=== PATIENT | male | born 1950 | race Caucasian/White ===

== ENCOUNTER 2017-04-24 12:08 | Observation (INO) ==
[2017-04-24 12:51] LABS: Hematocrit 46.6 % (37.5-50.1); Hemoglobin 16.8 g/dL (12.9-16.9); Mean Corpuscular HGB Conc 36.1 g/dL (31.6-35.5); Mean Corpuscular Hemoglobin 31.9 pg (28.0-33.3); Mean Corpuscular Volume 88.6 fL (83.0-100.0); Mean Platelet Volume 9.6 fL (9.4-12.4); Platelet Count 157 K/mcL (140-400); Red Blood Count 5.26 M/mcL (4.19-5.50); Red Cell Distribution Width 13.2 % (11.5-14.5)
[2017-04-24 13:06] LABS: BUN/Creatinine Ratio 6 (6-26); Blood Urea Nitrogen 4 mg/dL (8-26); Calcium 9.5 mg/dL (8.6-10.8); Carbon Dioxide 25 mEq/L (19-29); Chloride 91 mEq/L (98-109); Glucose 103 mg/dL (70-99); Osmolality,Calculated 263 (280-300); Potassium 3.5 mEq/L (3.5-4.5); Sodium 128 mEq/L (136-145); eGFR For African Americans > 60 (> 60); eGFR For Non-African Americans > 60 (> 60)
[2017-04-24 13:15] LABS: Lymphocytes # 0.8 K/mcL (0.6-4.6); Monocytes # 0.9 K/mcL (0.0-1.3); Platelet Estimate Normal (Normal); Reactive Lymphocytes Present (Not Present)
--- NOTE | 2017-04-24 13:54 | Emergency Department Note ---
Disposition Clinical Impression: Acute exacerbation of chronic obstructive airways disease Disposition: Admitted As Inpatient Condition: Fair Referrals: Nikunj Samson DO [Primary Care Provider] - Forms: ED Satisfaction Letter Time of Disposition: 14:19 SOB HPI - General Chief Complaint: ED Shortness of Breath/Dyspnea Stated Complaint: CELESTINE Time Seen by Provider: 04/24/17 13:34 Source: patient Mode of arrival: ambulatory Limitations: no limitations Nursing Notes Reviewed: Yes Vital Signs Reviewed: Yes - History of Present Illness 67-year-old male who comes in with exertional dyspnea as for the last 4 days. Pt Subjective Complaint: shortness of breath Onset (ago): day(s) (4) Context: recent illness Severity: moderate Consistency/Duration: constant Improves with: oxygen Worsens with: exertion Known history of: COPD Associated symptoms: Reports: cough, wheezing. Denies: chest pain Treatment prior to arrival: none Cough present: Yes Cough Description: Involuntary Cough Frequency: Intermittent Sputum Amount: None - Related Data Home Medications Medication Instructions Recorded Confirmed No Known Home Drugs 04/24/17 04/24/17 Allergies Allergy/AdvReac Type Severity Reaction Status Date / Time No Known Allergies Allergy Verified 04/24/17 12:29 All systems ED: reviewed and negative except as stated. Constitutional: Denies: fever, chills, weakness, weight change Eyes: Denies: eye pain, eye discharge, vision change ENT ED: Denies: ear pain, throat pain, dental pain, hearing loss, epistaxis, congestion, dysphagia Cardiovascular: Denies: chest pain, palpitations, dyspnea on exertion, edema, syncope Respiratory: Reports: cough, wheezes. Denies: dyspnea, hemoptysis, stridor Gastrointestinal: Denies: abdominal pain, nausea, vomiting, diarrhea, constipation, hematemesis, melena, hematochezia Genitourinary: Denies: urgency, dysuria, frequency, hematuria Musculoskeletal: Denies: back pain, neck pain, arthralgia, myalgia Integumentary: Denies: rash, abrasion, lesions Neurological: Denies: headache, weakness, numbness, paresthesias, confusion, abnormal gait, vertigo Psychiatric: Denies: anxiety, depression, suicidal thoughts, homicidal thoughts , auditory hallucinations, visual hallucinations Endocrine: Denies: fatigue Hematological/Lymphatic: Denies: easy bleeding, easy bruising Allergic/Immunologic: Denies: facial swelling, urticaria Past Medical History - Past Medical History Medical history: Reports: no medical history Psychiatric history: Reports: no psych history - Social History Smoking Status: Current every day smoker Smokeless Tobacco Status: Yes Alcohol use: Reports: occasionally Drug use: Reports: none Physical Exam - General Limitations: no limitations General appearance: alert - Head Head exam: atraumatic, normocephalic, normal inspection - Eye Eye exam: Present: normal appearance, PERRL, EOMI - ENT ENT exam: normal exam, normal oropharynx, mucous membranes moist - Neck Neck exam: Present: normal inspection, full ROM, trachea midline - Chest Chest inspection: Present: normal inspection, symmetric chest wall rise - Respiratory Respiratory exam: Present: wheezes - Cardiovascular Cardiovascular exam: Present: regular rate, normal rhythm, normal heart sounds - Abdominal Exam Abdominal exam: Present: soft, Non-Tender. Absent: tenderness, distention, guarding, rebound, rigidity - Extremities Exam Extremities exam: Present: normal inspection, full ROM. Absent: tenderness, pedal edema - Expanded Lower Extremity Exam Neurovascular/Tendon exam: Absent: motor deficit, sensory deficit, tendon deficit Gait: observed and normal - Back Exam Back exam: Present: normal inspection, full ROM. Absent: tenderness - Neurological Exam Neurological exam: Present: alert, oriented X3 - Psychiatric Psychiatric exam: Present: normal affect, normal mood - Skin Skin exam: Present: warm, dry, intact, normal color Course - Reevaluation(s) Reevaluation #1: 67-year-old with severe COPD comes in with increasing shortness of breath. Patient will be admitted for an exacerbation. Time: 14:47 - Consultations Consultation #1: Discussed with , admit. Time: 14:47 Vital Signs Temperature 97.6 F 04/24/17 12:09 Pulse Rate 129 04/24/17 12:09 Respiratory Rate 18 04/24/17 12:09 Blood Pressure 176/99 04/24/17 12:09 O2 Sat by Pulse Oximetry 97 04/24/17 12:09 Temperature 97.6 F 04/24/17 12:09 Pulse Rate 99 04/24/17 14:33 Respiratory Rate 13 04/24/17 14:33 Blood Pressure 151/97 04/24/17 14:33 O2 Sat by Pulse Oximetry 92 04/24/17 14:33 Oxygen Delivery Oxygen Delivery Room Air Shortness of Breath/Dyspnea - Lab Data Lab results reviewed: Yes I reviewed the patient's lab results. Result diagrams: 04/24/17 12:45 04/24/17 12:45 Lab Results 04/24/17 04/24/17 04/24/17 Range/Units 12:45 12:45 12:45 WBC 7.7 (4.3-11.1) K/mcL RBC 5.26 (4.19-5.50) M/mcL Hgb 16.8 (12.9-16.9) g/dL Hct 46.6 (37.5-50.1) % MCV 88.6 (83.0-100.0) fL MCH 31.9 (28.0-33.3) pg MCHC 36.1 H (31.6-35.5) g/dL RDW 13.2 (11.5-14.5) % Plt Count 157 (140-400) K/mcL MPV 9.6 (9.4-12.4) fL Seg Neutrophils % 78.0 % Lymphocytes % 10.0 % Monocytes % 12.0 % Neutrophils # 6.0 (1.6-8.9) K/mcL Lymphocytes # 0.8 (0.6-4.6) K/mcL Monocytes # 0.9 (0.0-1.3) K/mcL Reactive Lymphocytes Present A (Not Present) Platelet Estimate Normal (Normal) Sodium 128 L (136-145) mEq/L Potassium 3.5 (3.5-4.5) mEq/L Chloride 91 L (98-109) mEq/L Carbon Dioxide 25 (19-29) mEq/L BUN 4 L (8-26) mg/dL Creatinine 0.71 L (0.72-1.25) mg/dL Est GFR ( Amer) > 60 (> 60) Est GFR (Non-Af Amer) > 60 (> 60) BUN/Creatinine Ratio 6 (6-26) Glucose 103 H (70-99) mg/dL Calculated Osmolality 263 L (280-300) Lactic Acid 2.4 H (0.5-2.2) mmol/L Calcium 9.5 (8.6-10.8) mg/dL Troponin I (0-0.03) ng/mL B-Natriuretic Peptide (0-100) pg/mL 04/24/17 04/24/17 Range/Units 12:45 12:45 WBC (4.3-11.1) K/mcL RBC (4.19-5.50) M/mcL Hgb (12.9-16.9) g/dL Hct (37.5-50.1) % MCV (83.0-100.0) fL MCH (28.0-33.3) pg MCHC (31.6-35.5) g/dL RDW (11.5-14.5) % Plt Count (140-400) K/mcL MPV (9.4-12.4) fL Seg Neutrophils % % Lymphocytes % % Monocytes % % Neutrophils # (1.6-8.9) K/mcL Lymphocytes # (0.6-4.6) K/mcL Monocytes # (0.0-1.3) K/mcL Reactive Lymphocytes (Not Present) Platelet Estimate (Normal) Sodium (136-145) mEq/L Potassium (3.5-4.5) mEq/L Chloride (98-109) mEq/L Carbon Dioxide (19-29) mEq/L BUN (8-26) mg/dL Creatinine (0.72-1.25) mg/dL Est GFR ( Amer) (> 60) Est GFR (Non-Af Amer) (> 60) BUN/Creatinine Ratio (6-26) Glucose (70-99) mg/dL Calculated Osmolality (280-300) Lactic Acid (0.5-2.2) mmol/L Calcium (8.6-10.8) mg/dL Troponin I 0.01 (0-0.03) ng/mL B-Natriuretic Peptide 231 H (0-100) pg/mL - Radiology Data Radiology results reviewed: Yes I reviewed the patient's radiology results. Chest X-Ray 04/24/17 12:30 IMPRESSION: Findings suggesting severe COPD and emphysema. No acute focal process. Stable exam. D/ / Jignesh Harris MD / Jignesh Harris MD Interpreting Provider: Jignesh Harris MD - EKG Data EKG attestation: Yes I reviewed and interpreted this EKG. EKG shows normal: Reports: sinus rhythm Rate: Reports: tachycardia Rhythm: Reports: NSR Interpretation: Reports: no acute changes
[2017-04-24] MEDS ORDERED: methylPREDNISolone 125 MG/2 ML VIAL IVP ONE (15:59)
[2017-04-24] MEDS ORDERED: Naloxone 0.4 MG/ML INJ IVP PRN (17:23)
[2017-04-24] MEDS ORDERED: MOM Conc 10 ML UD.LIQ PO PRN (17:23)
[2017-04-24] MEDS ORDERED: *HR* HYDROcodone/Acet 5/325 mg TABLET PO PRN (17:23)
[2017-04-24] MEDS ORDERED: Ondansetron 4 MG/2 ML VIAL IVP PRN (17:23)
[2017-04-24] MEDS ORDERED: *HR* Promethazine 25 MG/ML VIAL IVP PRN (17:23)
[2017-04-24] MEDS ORDERED: *HR* Morphine 2 MG/ML SYRINGE IVP PRN (17:23)
[2017-04-24] MEDS ORDERED: Acetaminophen 325 MG TABLET PO PRN (17:23)
[2017-04-24] MEDS ORDERED: *HR* LORazepam 2 MG/ML VIAL IVP PRN ×2 (17:25)
--- NOTE | 2017-04-24 17:40 | Internal Med History&Physical ---
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 mostly due to dehydration no signs of sepsis trend on lactic acid on empirical abx Qualifiers: Qualified Code(s): J20.9 - Acute bronchitis, unspecified (4) Hyponatremia Current visit: Yes Status: Acute mostly due to chronic alcohol.. however he does look slightly dehydrated..will give 1 lit nS (5) Tobacco dependence Current visit: Yes Status: Acute counseled to quit smoking on nicotine patch (6) Alcohol dependence in controlled environment Current visit: Yes Status: Acute concerned for withdraw symptoms placed him on CIWA protocol (7) Hypertension, essential Current visit: Yes Status: Acute started him on Norvasc Use hydralazine IV PRN Internal Medicine - H&P: HPI Chief complaint: Shortness of breath Admitted From: Emergency Dept Plans for Post Hospital Care: Home History of present illness: Mr. Camejo is a 67 year old male with no significant PMH except chronic tobacco dependence, alcohol dependence drinks 2 beers every other day pt presented to ER c/0 feeling sick, flu like symptoms, cough with greenish expectoration and shortness of breath from last 2 days. He denied any sick contacts, no recent travel history. He received breathing treatment, and systemic steroids in the ER. Now he feels little better. Denied any CP. Past Med Surg Social Fam HX - Past Medical History Medical history: no medical history Psychiatric history: no psych history - Social History Smoking Status: Current every day smoker Smokeless Tobacco Status: Yes Alcohol use: occasionally, recent Drug use: none - Family History Brother Hx Family Respiratory Disorders: Yes (has COPD) Internal Medicine - H&P: Meds No Known Home Drugs 04/24/17 [History] 3 Allergy/AdvReac Type Severity Reaction Status Date / Time No Known Allergies Allergy Verified 04/24/17 12:29 All Systems PM: A 10-system review of systems was performed and is negative for pertinent findings except as documented above in the HPI. Review of systems: reviewed all the systems everything is benign except the systems and symptoms i mentioned in HPI. - Constitutional Vitals: Temp Pulse Resp BP Pulse Ox 97.6 F 99 13 151/97 92 04/24/17 12:09 04/24/17 14:33 04/24/17 14:33 04/24/17 14:33 04/24/17 14:33 General appearance: Present: A&O X 3, no acute distress (able to finish full sentence with out any pause) - Head Head exam: Present: atraumatic, normal inspection - Neck Neck exam general surgery: Present: supple - Respiratory Respiratory exam: Present: decreased breath sounds, wheezes (moderate). Absent : rales, respiratory distress, rhonchi - Cardiovascular Cardiovascular exam: Present: RRR, +S1, +S2. Absent: diastolic murmur, gallop, rubs, systolic murmur - GI/Abdominal GI/Abdominal exam: Present: normal bowel sounds, soft. Absent: rebound, rigid, tenderness - Extremities Exam Extremities exam: Absent: calf tenderness, pedal edema, tenderness - Back Exam Back exam: Absent: CVA tenderness (L), CVA tenderness (R) - Neurological Exam Neurological exam: Present: alert, oriented X3, no focal deficits - Psychiatric Psychiatric exam: Present: normal affect, normal mood - Skin Skin exam: Absent: rash Internal Med - H&P Results - Labs CBC & Chem 7: 04/24/17 12:45 04/24/17 12:45
[2017-04-24] MEDS: Nicotine 21 MG PATCH.TD24 TD SCH (18:21)
[2017-04-24] MEDS: Thiamine (B-1) 100 MG TABLET PO SCH (18:21)
[2017-04-24] MEDS: Folic Acid 1 MG TABLET PO SCH (18:21)
[2017-04-24] MEDS: Levofloxacin 500 MG/100 ML 500 MG/100 ML BAG IVPB SCH (18:21)
[2017-04-24] MEDS: amLODIPine 5 MG TABLET PO SCH (18:50)
[2017-04-24] MEDS: Ipratropium/Albuterol Neb 3 ML IH SCH ×2 (19:55→23:30)
[2017-04-25] MEDS: MethylPREDNISolone 40 MG/ML VIAL IVP SCH ×3 (00:21→17:18)
[2017-04-25] MEDS ORDERED: Melatonin 3 MG TABLET PO ONE (02:12)
[2017-04-25] MEDS: Ipratropium/Albuterol Neb 3 ML IH SCH ×6 (03:43→23:05)
[2017-04-25 05:08] LABS: Basophils % 0.3 %; Hematocrit 43.3 % (37.5-50.1); Hemoglobin 15.6 g/dL (12.9-16.9); Immature Granulocytes % 0.6 % (0-4); Lymphocytes # 0.6 K/mcL (0.6-4.6); Lymphocytes % 16.6 %; Mean Corpuscular Hemoglobin 31.8 pg (28.0-33.3); Mean Corpuscular Volume 88.2 fL (83.0-100.0); Monocytes # 0.1 K/mcL (0.0-1.3); Monocytes % 3.8 %; Neutrophils # 2.7 K/mcL (1.6-8.9); Platelet Count 159 K/mcL (140-400); Red Blood Count 4.91 M/mcL (4.19-5.50); Red Cell Distribution Width 13.2 % (11.5-14.5); Segmented Neutrophils % 78.7 %
[2017-04-25 05:33] LABS: Alanine Aminotransferase 31 Units/L (0-55); Albumin/Globulin Ratio 0.7 (1.1-2.2); Alkaline Phosphatase 95 Units/L (38-126); Aspartate Amino Transferase 43 Units/L (5-34); BUN/Creatinine Ratio 11 (6-26); Bilirubin,Total 0.6 mg/dL (0.2-1.2); Blood Urea Nitrogen 8 mg/dL (8-26); Calcium 8.9 mg/dL (8.6-10.8); Carbon Dioxide 20 mEq/L (19-29); Chloride 94 mEq/L (98-109); Cholesterol 105 mg/dL (< 200); Globulin 4.1 g/dL (2.4-3.5); Glucose 185 mg/dL (70-99); HDL Cholesterol 52 mg/dL (40-59); LDL Cholesterol,Calculated 40 mg/dL (0-99); Magnesium 1.5 mg/dL (1.6-2.6); Osmolality,Calculated 269 (280-300); Potassium 3.3 mEq/L (3.5-4.5); Sodium 128 mEq/L (136-145); Total Protein 7.1 g/dL (6.0-8.3); Triglycerides 64 mg/dL (< 150); eGFR For African Americans > 60 (> 60); eGFR For Non-African Americans > 60 (> 60)
[2017-04-25] MEDS: Folic Acid 1 MG TABLET PO SCH (08:57)
[2017-04-25] MEDS: amLODIPine 5 MG TABLET PO SCH (08:57)
[2017-04-25] MEDS: Vitamin B Complex/Vit C/Vit E 1 EACH TABLET PO SCH (08:57)
[2017-04-25] MEDS: Nicotine 21 MG PATCH.TD24 TD SCH (08:57)
[2017-04-25] MEDS: Thiamine (B-1) 100 MG TABLET PO SCH (08:58)
--- NOTE | 2017-04-25 13:59 | Internal Med Progress Note ---
Date of Encounter: 04/25/17 Time of Encounter: 13:30 - Assessment and plan (1) COPD exacerbation Current Visit: Yes Status: Acute Assessment and plan: Improving slowly Cont him on systemic steroids cont scheduled bronchodilators O2 PRN Cont him on empirical abx Levaquin (2) Shortness of breath Current Visit: Yes Status: Acute Assessment and plan: Mostly due to COPD exacerbation His 2 D echo showed Normal preserved LVEF, mild diastolic dysfunction But pt does not have any de compensated CHF (3) Acute bronchitis Current Visit: Yes Status: Acute Assessment and plan: mostly bacterial he does have slightly elevated lactic acid.. mostly due to dehydration started on IV hydration no signs of sepsis trend on lactic acid on empirical abx Qualifiers: Qualified Code(s): J20.9 - Acute bronchitis, unspecified (4) Hyponatremia Current Visit: Yes Status: Acute Assessment and plan: mostly due to chronic alcohol.. however he does look slightly dehydrated His Na still @ 128 started him on IV hydration NS @ 125 will trend on Na (5) Tobacco dependence Current Visit: Yes Status: Acute Assessment and plan: counseled to quit smoking on nicotine patch (6) Alcohol dependence in controlled environment Current Visit: Yes Status: Acute Assessment and plan: no withdraw symptoms cont on CIWA protocol (7) Hypertension, essential Current Visit: Yes Status: Acute Assessment and plan: doing well on Norvasc Use hydralazine IV PRN - Subjective Interval history: Mr. Camejo is a 67 year old male with no significant PMH except chronic tobacco dependence, alcohol dependence drinks 2 beers every other day pt presented to ER c/0 feeling sick, flu like symptoms, cough with greenish expectoration and shortness of breath from last 2 days. Today he states he is feeling little better. Still has some SOB and LOPEZ. Does not think he is back to baseline yet - Constitutional Vitals: Temp Pulse Resp BP Pulse Ox 98 F 108 16 132/75 98 04/25/17 11:54 04/25/17 11:54 04/25/17 11:54 04/25/17 11:54 04/25/17 11:54 General appearance: Present: A&O X 3, no acute distress (able to finish full sentence with out any pause) - Head Head exam: Present: atraumatic, normal inspection - Neck Neck exam general surgery: Present: supple - Respiratory Respiratory exam: Present: decreased breath sounds, wheezes (mild to moderate). Absent: rales, respiratory distress, rhonchi - Cardiovascular Cardiovascular exam: Present: RRR, +S1, +S2. Absent: tachycardia - Extremities Exam Extremities exam: Absent: calf tenderness, pedal edema, tenderness - Back Exam Back exam: Absent: CVA tenderness (L), CVA tenderness (R) - Neurological Exam Neurological exam: Present: alert, oriented X3 - Psychiatric Psychiatric exam: Present: normal affect, normal mood Internal Medicine: Result - Labs CBC & Chem 7: 04/25/17 04:53 04/25/17 04:53 Labs: Short CBC 04/25/17 Range/Units 04:53 WBC 3.4 L D (4.3-11.1) K/mcL Hgb 15.6 (12.9-16.9) g/dL Hct 43.3 (37.5-50.1) % Plt Count 159 (140-400) K/mcL Neutrophils # 2.7 (1.6-8.9) K/mcL BMP 04/25/17 04:53 Sodium 128 L Potassium 3.3 L Chloride 94 L Carbon Dioxide 20 BUN 8 Creatinine 0.76 Glucose 185 H Calcium 8.9 Liver Function 04/25/17 Range/Units 04:53 Total Bilirubin 0.6 (0.2-1.2) mg/dL AST 43 H (5-34) Units/L ALT 31 (0-55) Units/L Alkaline Phosphatase 95 (38-126) Units/L Albumin 3.0 L (3.5-5.0) g/dL - Impressions Impressions Echocardiogram 04/24/17 17:28 Impressions: LVEF 65-70%. Normal LV chamber size, wall thickness and function. Normal right ventricular structure and function. Mild left ventricular diastolic dysfunction. No significant valvular dysfunction. Unable to estimate RVSP due to lack of TR jet. Left Ventricular Wall Motion: Rest Echo Findings All wall segments showed normal motion. Findings: Study Quality * Technically adequate exam. ECG Findings * Sinus tachycardia. Left Ventricle * LVEF 65-70%. * Normal LV chamber size, wall thickness and function. * Mild left ventricular diastolic dysfunction. Right Ventricle * Normal right ventricular structure and function. Left Atrium * Normal left atrial size. Right Atrium * Normal right atrial size. Interatrial Septum * Interatrial septum not well evaluated. Aortic Valve * Trileaflet aortic valve with normal function. * No aortic regurgitation. * No aortic stenosis. Mitral Valve * Mild mitral annular calcification * Normal mitral valve function. * No mitral regurgitation. * No mitral stenosis. Tricuspid Valve * Normal tricuspid valve structure and function. * No tricuspid regurgitation. * Unable to estimate RVSP due to lack of TR jet. Pulmonic Valve * Normal pulmonic valve structure and function. * Pulmonic valve not well visualized. Aorta * Normally sized aortic root. Pericardium * The pericardium appears normal. IVC * Normal IVC dimensions and inspiratory collapse. Pulmonary Artery * Normal visualized portions of the main pulmonary artery. Consult Discharge Plan - Plan Referrals: Nikunj Samson DO [Primary Care Provider] -
[2017-04-25] MEDS: 0.9 % Sodium Chloride 1,000 ML IVC SCH ×2 (14:13→22:43)
[2017-04-25] MEDS ORDERED: Melatonin 3 MG TABLET PO PRN (15:53)
[2017-04-25] MEDS: Levofloxacin 500 MG/100 ML 500 MG/100 ML BAG IVPB SCH (17:19)
[2017-04-25 18:25] LABS: BUN/Creatinine Ratio 14 (6-26); Blood Urea Nitrogen 11 mg/dL (8-26); Calcium 8.7 mg/dL (8.6-10.8); Carbon Dioxide 15 mEq/L (19-29); Chloride 96 mEq/L (98-109); Glucose 162 mg/dL (70-99); Osmolality,Calculated 267 (280-300); Potassium 3.6 mEq/L (3.5-4.5); Sodium 127 mEq/L (136-145); eGFR For African Americans > 60 (> 60); eGFR For Non-African Americans > 60 (> 60)
[2017-04-26] MEDS: Ipratropium/Albuterol Neb 3 ML IH SCH ×3 (03:42→11:28)
[2017-04-26] MEDS: MethylPREDNISolone 40 MG/ML VIAL IVP SCH (06:07)
[2017-04-26 06:28] LABS: BUN/Creatinine Ratio 13 (6-26); Blood Urea Nitrogen 9 mg/dL (8-26); Calcium 8.2 mg/dL (8.6-10.8); Carbon Dioxide 21 mEq/L (19-29); Chloride 102 mEq/L (98-109); Glucose 153 mg/dL (70-99); Osmolality,Calculated 272 (280-300); Potassium 4.1 mEq/L (3.5-4.5); Sodium 130 mEq/L (136-145); eGFR For African Americans > 60 (> 60); eGFR For Non-African Americans > 60 (> 60)
[2017-04-26] MEDS: 0.9 % Sodium Chloride 1,000 ML IVC SCH (06:52)
[2017-04-26] MEDS: Nicotine 21 MG PATCH.TD24 TD SCH (09:55)
[2017-04-26] MEDS: amLODIPine 5 MG TABLET PO SCH (09:55)
[2017-04-26] MEDS: Thiamine (B-1) 100 MG TABLET PO SCH (09:55)
[2017-04-26] MEDS: Folic Acid 1 MG TABLET PO SCH (09:55)
[2017-04-26] MEDS: Vitamin B Complex/Vit C/Vit E 1 EACH TABLET PO SCH (09:55)
[2017-04-26 11:09] VITALS: BP 124/68
--- NOTE | 2017-04-26 13:33 | Discharge Summary ---
Date of Encounter: 04/26/17 Time of Encounter: 13:30 - Discharge Diagnosis (1) COPD exacerbation Priority: Primary Status: Acute (2) Shortness of breath Priority: Primary Status: Acute (3) Acute bronchitis Priority: Primary Status: Acute Qualifiers: Qualified Code(s): J20.9 - Acute bronchitis, unspecified (4) Hyponatremia Priority: Secondary Status: Acute (5) Tobacco dependence Priority: Secondary Status: Acute (6) Alcohol dependence in controlled environment Priority: Secondary Status: Acute (7) Hypertension, essential Priority: Secondary Status: Acute (8) Hypoxia Priority: Secondary Status: Acute - Discharge Medications Prescriptions: Albuterol Sulfate [Albuterol Inhaler] 2 puff IH Q6HR PRN #1 [email or web address] PRN Reason: Shortness Of Breath Amlodipine Besylate 10 mg PO DAILY #30 tablet Levofloxacin [Levaquin] 500 mg PO DAILY #3 tablet Nicotine Patch [Nicoderm] 21 mg TD DAILY #30 patch.td24 predniSONE [PredniSONE] 40 mg PO DAILY #10 tablet Home Medications: Albuterol Sulfate [Albuterol Inhaler] 2 puff IH Q6HR PRN #1 hfa.[email or web address].ad 04/26/17 [Rx] Amlodipine Besylate 10 mg PO DAILY #30 tablet 04/26/17 [Rx] Levofloxacin [Levaquin] 500 mg PO DAILY #3 tablet 04/26/17 [Rx] Nicotine Patch [Nicoderm] 21 mg TD DAILY #30 patch.td24 04/26/17 [Rx] predniSONE [PredniSONE] 40 mg PO DAILY #10 tablet 04/26/17 [Rx] Allergies/Adverse Reactions: 3 Allergy/AdvReac Type Severity Reaction Status Date / Time No Known Allergies Allergy Verified 04/24/17 12:29 Procedures/tests Complete & Pending: Procedures Performed prior 72 hours Category Date Time Status EV echocardiogram Routine Y 04/24/17 17:28 Completed Date of admission: 04/24/17 15:05 Primary care physician: Jude Davis - Patient Status Disposition: Home, Self-Care Condition: Good Overall status at discharge: patient is back to baseline - Discharge Instructions Follow Up With: Nikunj Samson, [Primary Care Provider] - - Diet and Activity Activity: increase activity as tolerated, wear oxygen at night (and with ambulation) Diet: low salt diet Hospital course: Mr. Camejo is a 67 year old male with no significant PMH except chronic tobacco dependence, alcohol dependence drinks 2 beers every other day pt presented to ER c/0 feeling sick, flu like symptoms, cough with greenish expectoration and shortness of breath from last 2 days. Pt was admitted in the hospital and started him on empirical abx Levaquin and high dose iV steroids. His symptoms started improving slowly. He does required Oxygen with ambulation, so arrange for home O2. Also he did have mild hyponatremia due to dehydration and his chronic alcohol dependence. He was started on IV fluids and his Na improved to 130 today. Counseled to quit drinking alcohol and smoking tobacco. Will d/c him home in stable condition today with Home O2. - Time Spent with Patient Total time spent providing and/or coordinating discharge services: - Constitutional Vitals: Temp Pulse Resp BP Pulse Ox 98.0 F 103 16 124/68 94 04/26/17 11:06 04/26/17 11:06 04/26/17 11:30 04/26/17 11:06 04/26/17 12:04 General appearance: Present: A&O X 3, no acute distress (able to finish full sentence with out any pause) - Head Head exam: Present: atraumatic, normal inspection - Neck Neck exam general surgery: Present: supple - Cardiovascular Cardiovascular exam: Present: RRR, +S1, +S2. Absent: systolic murmur - GI/Abdominal GI/Abdominal exam: Present: normal bowel sounds, soft. Absent: rebound, rigid, tenderness - Extremities Exam Extremities exam: Absent: calf tenderness, pedal edema, tenderness - Neurological Exam Neurological exam: Present: alert, oriented X3 - Psychiatric Psychiatric exam: Present: normal affect, normal mood
--- NOTE | 2017-04-28 21:01 | Electrocardiograph Report ---
[place] [id number] Test Date: 2017-04-24 Pat Name: Tito Camejo Department: 102 Room: 3B Gender: M [employer]: Jakob : 1950 Requested By: Westley Vazquez Order Number: [id number] Reading MD: Destini Olvera Measurements Intervals [place] Rate: 118 P: 81 [place]: 123 QRS: 107 QRSD: 122 T: 54 QT: 333 QTc: 403 Interpretive Statements SINUS TACHYCARDIA POSSIBLE RIGHT VENTRICULAR CONDUCTION DELAY [RSR (QR) IN V1/V2] POSSIBLE LATERAL MYOCARDIAL INFARCTION [30 ms Q WAVE IN I/aVL/V5/V6], OF INDETERMINATE AGE Electronically Signed On 04-28-2017 21:00:16 EST by Destini Olvera
== END 2017-04-26 14:43 | disposition home or self-care (01) ==
LOC: EMEROO 12:08 → 3BNU 12:08
PROVIDERS: ADMIT Family Medicine; ATTEND Registered Nurse